=== PATIENT | female | born 1965 | race Caucasian/White ===

== ENCOUNTER → 2019-08-09 | Outpatient (CLI) | payer OTHER | LOC: COL.RAD 09:21 | DX: E28.1 Androgen excess (principal); Z90.710 Acquired absence of both cervix and uterus ==

== ENCOUNTER → 2019-08-10 | Outpatient (CLI) | payer OTHER | LOC: COL.RAD 08-09 11:30 | DX: E28.1 Androgen excess (principal); Z90.710 Acquired absence of both cervix and uterus | CPT/HCPCS: Q9967 ==